=== PATIENT | female | born 1975 | race African-American/Black ===

== ENCOUNTER → 2017-02-15 | Outpatient (CLI) | payer BC ==
--- NOTE | 2017-02-15 15:36 | KCIC ---
EXAM: Pelvic sonogram. HISTORY: Menstrual irregularity and cramping. TECHNIQUE: Transabdominal and transvaginal sonographic imaging of the pelvis was performed. COMPARISON: None. FINDINGS: The uterus measures 8.7 x 4.3 x 4.7 cm. There is a 2.1 cm fibroid within the superior uterine fundus. The endometrial stripe measures 6.1 mm in thickness. There is a small endometrial fluid collection within the lower uterine segment measuring 9 mm in maximum dimension. There are multiple nabothian cysts within the cervix. The right ovary measures 3.1 x 2.6 x 2.2 cm and demonstrates normal blood flow. There is a complex cyst with internal septation within the right ovary measuring 2.4 x 2.0 x 1.8 cm. The left ovary is obscured. There are left adnexal pelvic varices. There is no pelvic free fluid. IMPRESSION: 1. Small nonspecific endometrial fluid collection within the lower uterine segment. The endometrial stripe is within normal limits in thickness. 2. 2.1 cm uterine fibroid. 3. 2.4 cm complex right ovarian cyst with internal septation. 4. Left pelvic varices. The left ovary is obscured. Electronically signed by: Nikole Fowler MD (02/15/2017 3:33 PM) [id number]
== END | disposition home or self-care (01) ==
LOC: KCIC US 14:29
PROVIDERS: ATTEND Family Medicine
DX: N92.6 Irregular menstruation, unspecified (principal); R25.2 Cramp and spasm; I86.2 Pelvic varices
CPT/HCPCS: 76830; 76856

== ENCOUNTER 2021-01-27 11:14 | Emergency (ER) | payer BC ==
[~2021-01-27] VITALS: Ht 157.5 cm; Wt 118.3 kg
[2021-01-27] MEDS ORDERED: ONDANSETRON PF 4 MG/2 ML VIAL. ONE (13:00)
[2021-01-27 13:08] VITALS: BP 127/71
[2021-01-27 13:24] LABS: BASO # 0.1 x10^3/uL (0.0-0.2); BASO % 1 % (0-3); EOS # 0.1 x10^3/uL (0.0-0.7); EOS % 1 % (0-3); HEMATOCRIT 44.8 % (36.0-47.0); HEMOGLOBIN 14.9 g/dL (12.0-15.5); LYMPH # 1.9 x10^3/uL (1.0-4.8); LYMPH % 26 % (24-48); MEAN CORPUSCULAR HEMOGLOBIN 28 pg (25-35); MEAN CORPUSCULAR HGB CONC 33 g/dL (31-37); MEAN CORPUSCULAR VOLUME 85 fL (79-100); MONO # 0.9 x10^3/uL (0.0-1.1); MONO % 12 % (0-9); NEUT # 4.6 x10^3/uL (1.8-7.7); NEUT % 61 % (31-73); PLATELET COUNT 672 x10^3/uL (140-400); RED BLOOD COUNT 5.25 x10^6/uL (3.50-5.40); RED CELL DISTRIBUTION WIDTH 13.9 % (11.5-14.5); WHITE BLOOD COUNT 7.5 x10^3/uL (4.0-11.0)
[2021-01-27] MEDS ORDERED: IV NORMAL SALINE 1000ML BAG 1,000 ML IV ONE (13:30)
[2021-01-27] MEDS ORDERED: ONDANSETRON PF 4 MG/2 ML VIAL. IVP ONE (13:30)
[2021-01-27 13:32] LABS: CALCIUM 9.7 mg/dL (8.5-10.1); CREATININE 0.9 mg/dL (0.6-1.0); GFR 81.9; POTASSIUM 3.1 mmol/L (3.5-5.1)
[2021-01-27 13:39] LABS: ALBUMIN 4.1 g/dL (3.4-5.0); TOTAL BILIRUBIN 0.6 mg/dL (0.2-1.0); TOTAL PROTEIN 8.2 g/dL (6.4-8.2)
[2021-01-27] MEDS ORDERED: POTASSIUM CHLORIDE 20 MEQ TABLET.ER. PO ONE (14:30)
[2021-01-27 14:40] LABS: BILIRUBIN,URINE SMALL (NEG); CLARITY,URINE CLEAR; COLOR,URINE AMBER; NITRITE,URINE NEGATIVE (NEG); PROTEIN,URINE 100 mg/dL (NEG-TRACE)
[2021-01-27 14:46] LABS: BARBITURATES NEG (NEG); BENZODIAZEPINES NEG (NEG); CANNABINOIDS POS (NEG); COCAINE NEG (NEG); METHADONE NEG (NEG); OPIATES NEG (NEG); PHENCYCLIDINE NEG (NEG)
[2021-01-27 14:47] LABS: AMPHETAMINE/METHAMPHETAMINE NEG (NEG)
[2021-01-27 14:48] LABS: HYALINE CASTS, URINE FEW /HPF
[2021-01-27 14:49] LABS: BACTERIA,URINE 0 /HPF (0-FEW); TRICHOMONAS,URINE PRESENT; WBC,URINE 20-40 /HPF (0-4)
[2021-01-27] MEDS ORDERED: DOXYCYCLINE HYCLATE 100 MG TABLET PO ONE (15:30)
[2021-01-27] MEDS ORDERED: cefTRIAXone IV Push 1 GM VIAL. IVP ONE (15:30)
[2021-01-27] MEDS ORDERED: metroNIDAZOLE 500 MG TABLET PO ONE (15:30)
--- NOTE | 2021-01-27 15:35 | PHYS DOC ---
Past Medical History Past Medical History: No Pertinent History (OLIVIA BARNETT BUTTON CLAMPER) Past Surgical History: No Surgical History (OLIVIA BARNETT BUTTON CLAMPER) Smoking Status: Never Smoker Alcohol Use: None (ERICKAOLIVIA BUTTON CLAMPER) General Adult EDM: Chief Complaint: DEHYDRATION HPI: HPI: Patient is a 45 year old female patient presented to the ED today stating she is dehydrated. Patient states she was diagnosed with COVID-19 on January 15, 2021. She states she has had intermittent episodes of nausea and vomiting since then as well as dysuria. She states she was originally seen at an urgent care last week and was put on levaquin for 5 days, she states she already completed the medicine with no improvement (NATEOLIVIA Josue BUTTON CLAMPER) Review of Systems: Review of Systems: Constitutional: Denies fever or chills. [] Eyes: Denies change in visual acuity. [] HENT: Denies nasal congestion or sore throat. [] Respiratory: Denies cough or shortness of breath. [] Cardiovascular: Denies chest pain or edema. [] GI: Reports nausea, vomiting. Denies abdominal pain bloody stools or diarrhea. [] : Reports dysuria. [] Musculoskeletal: Denies back pain or joint pain. [] Integument: Denies rash. [] Neurologic: Denies headache, focal weakness or sensory changes. [] Psychiatric: Denies depression or anxiety. [] (NATEOLIVIA Josue BUTTON CLAMPER) Heart Score: C/O Chest Pain: N/A Risk Factors: Risk Factors: DM, Current or recent (<one month) smoker, HTN, HLP, family history of CAD, obesity. Risk Scores: Score 0 - 3: 2.5% MACE over next 6 weeks - Discharge Home Score 4 - 6: 20.3% MACE over next 6 weeks - Admit for Clinical Observation Score 7 - 10: 72.7% MACE over next 6 weeks - Early Invasive Strategies (OLIVIA BARNETT BUTTON CLAMPER) Current Medications: Current Medications Medications (Trade) Dose Ordered Sig/Larry Start Time Stop Time Status Last Admin Dose Admin Ceftriaxone Sodium (Rocephin) 1 gm 1X ONCE 01/27/21 15:30 01/27/21 15:31 Doxycycline Hyclate (Vibra-Tab) 100 mg 1X ONCE 7/5/21 15:30 01/27/21 15:31 Metronidazole (Flagyl) 2,000 mg 1X ONCE 01/27/21 15:30 01/27/21 15:31 Ondansetron HCl (Zofran) 4 mg STK-MED ONCE 01/27/21 13:00 01/27/21 13:00 DC Potassium Chloride (Klor-Con) 40 meq 1X ONCE 01/27/21 14:30 01/27/21 14:31 DC 01/27/21 14:15 40 MEQ Sodium Chloride 1,000 ml @ 1,000 mls/hr 1X ONCE 01/27/21 13:30 01/27/21 14:29 DC 01/27/21 13:14 1,000 MLS/HR (OLIVIA BARNETT M BUTTON CLAMPER) Allergies: Allergies: Allergies Coded Allergies Type Severity Reaction Last Updated Verified sulfamethoxazole Allergy Intermediate vomit 01/27/21 Yes trimethoprim Allergy Intermediate vomit 01/27/21 Yes (NATEAOLIVIA M BUTTON CLAMPER) Physical Exam: PE: Constitutional: Well developed, well nourished, no acute distress, non-toxic appearance. [] HENT: Normocephalic, atraumatic, bilateral external ears normal, oropharynx moist, no oral exudates, nose normal. [] Eyes: PERRLA, EOMI, conjunctiva normal, no discharge. [] Neck: Normal range of motion, no tenderness, supple, no stridor. [] Cardiovascular:Heart rate regular rhythm, no murmur [] Lungs & Thorax: Bilateral breath sounds clear to auscultation [] Abdomen: Bowel sounds normal, soft, no tenderness, no masses, no pulsatile masses. [] Skin: Warm, dry, no erythema, no rash. [] Back: No tenderness, no CVA tenderness. [] Extremities: No tenderness, no cyanosis, no clubbing, ROM intact, no edema. [] Neurologic: Alert and oriented X 3, normal motor function, normal sensory function, no focal deficits noted. Cranial nerves II through XII intact Psychologic: Affect normal, judgement normal, mood normal. [] (ERICKA,OLIVIA M BUTTON CLAMPER) Current Patient Data: Labs: Laboratory Tests Test 01/27/21 13:10 01/27/21 14:20 White Blood Count 7.5 x10^3/uL (4.0-11.0) Red Blood Count 5.25 x10^6/uL (3.50-5.40) Hemoglobin 14.9 g/dL (12.0-15.5) Hematocrit 44.8 % (36.0-47.0) Mean Corpuscular Volume 85 fL (79-100) Mean Corpuscular Hemoglobin 28 pg (25-35) Mean Corpuscular Hemoglobin Concent 33 g/dL (31-37) Red Cell Distribution Width 13.9 % (11.5-14.5) Platelet Count 672 x10^3/uL (140-400) H Neutrophils (%) (Auto) 61 % (31-73) Lymphocytes (%) (Auto) 26 % (24-48) Monocytes (%) (Auto) 12 % (0-9) H Eosinophils (%) (Auto) 1 % (0-3) Basophils (%) (Auto) 1 % (0-3) Neutrophils # (Auto) 4.6 x10^3/uL (1.8-7.7) Lymphocytes # (Auto) 1.9 x10^3/uL (1.0-4.8) Monocytes # (Auto) 0.9 x10^3/uL (0.0-1.1) Eosinophils # (Auto) 0.1 x10^3/uL (0.0-0.7) Basophils # (Auto) 0.1 x10^3/uL (0.0-0.2) Sodium Level 143 mmol/L (136-145) Potassium Level 3.1 mmol/L (3.5-5.1) L Chloride Level 102 mmol/L (98-107) Carbon Dioxide Level 31 mmol/L (21-32) Anion Gap 10 (6-14) Blood Urea Nitrogen 9 mg/dL (7-20) Creatinine 0.9 mg/dL (0.6-1.0) Estimated GFR (Cockcroft-Gault) 81.9 BUN/Creatinine Ratio 10 (6-20) Glucose Level 130 mg/dL (70-99) H Calcium Level 9.7 mg/dL (8.5-10.1) Total Bilirubin 0.6 mg/dL (0.2-1.0) Aspartate Amino Transferase (AST) 146 U/L (15-37) H Alanine Aminotransferase (ALT) 298 U/L (14-59) H Alkaline Phosphatase 108 U/L (46-116) Total Protein 8.2 g/dL (6.4-8.2) Albumin 4.1 g/dL (3.4-5.0) Albumin/Globulin Ratio 1.0 (1.0-1.7) Lipase 52 U/L (73-393) L Ethyl Alcohol Level < 10 mg/dL (0-10) Urine Collection Type Unknown Urine Color Anabelle Urine Clarity Clear Urine pH 6.0 (<5.0-8.0) Urine Specific [place] >=1.030 (1.000-1.030) Urine Protein 100 mg/dL (NEG-TRACE) Urine Glucose (UA) Negative mg/dL (NEG) Urine Ketones (Stick) Trace mg/dL (NEG) Urine Blood Negative (NEG) Urine Nitrite Negative (NEG) Urine Bilirubin Small (NEG) Urine Urobilinogen Dipstick 1.0 mg/dL (0.2 mg/dL) Urine Leukocyte Esterase Small (NEG) Urine RBC 1-2 /HPF (0-2) Urine WBC 20-40 /HPF (0-4) Urine Squamous Epithelial Cells Mod /LPF Urine Bacteria 0 /HPF (0-FEW) Urine Hyaline Casts Few /HPF Urine Mucus Marked /LPF Urine Trichomonas Present Urine Opiates Screen Neg (NEG) Urine Methadone Screen Neg (NEG) Urine Barbiturates Neg (NEG) Urine Phencyclidine Screen Neg (NEG) Urine Amphetamine/Methamphetamine Neg (NEG) Urine Benzodiazepines Screen Neg (NEG) Urine Cocaine Screen Neg (NEG) Urine Cannabinoids Screen Pos (NEG) Urine Ethyl Alcohol Neg (NEG) Laboratory Tests 01/27/21 13:10 Laboratory Tests 01/27/21 13:10 Vital Signs: Vital Signs Date Time Temp Pulse Resp B/P (MAP) Pulse Ox O2 Delivery O2 Flow Rate FiO2 01/27/21 13:08 98.7 85 20 127/71 (89) 98 Room Air 98.7 (OLIVIA BARNETT BUTTON CLAMPER) EKG: EKG: [] (OLIVIA BARNETT BUTTON CLAMPER) Radiology/Procedures: Radiology/Procedures: [] (OLIVIA BARNETT BUTTON CLAMPER) Course & Med Decision Making: Course & Med Decision Making Pertinent Labs and Imaging studies reviewed. (See chart for details) This is a 45-year-old female patient presented to the ED today complaining of dehydration. Patient was diagnosed with COVID-19 on January 15, 2021 as well as UTI. She was treated with Levaquin. She states symptoms are still ongoing including dysuria. Vitals are stable on arrival to the ED. CBC with a normal WBC, CMP noted for potassium of 3.1, oral potassium given. AST 146 and ALT of 298. Patient has no abdominal pain, this could be from Covid UA positive for trichomonas and UTI. Patient was given 1 L of IV fluids. Given Zofran. Patient was given Rocephin, Flagyl and doxycycline in the ED. Discharged with doxycycline and cephalexin. STD education provided Patient seem interested to be admitted in the hospital. Informed her there is no indication to be admitted in the hospital considering her O2 sats above 95% on room air and the rest of her lab work does not have anything acute that needs hospital admission. (OLIVIA BARNETT BUTTON CLAMPER) Course & Med Decision Making I oversaw on the above date of service of this patient. This patient was evaluated, examined, treated, and dispositioned from the emergency department by the mid-level practitioner. Although I was working at the time and available for consultation, no assistance was requested and I did not see or immediately direct the care of this patient. I reviewed note and agree to findings, plan of care, and disposition as stated. Electronically signed, Jailene Garzon DO (JAILENE GARZON DO) Jorge A Disclaimer: Jorge A Disclaimer: This electronic medical record was generated, in whole or in part, using a voice recognition dictation system. (OLIVIA BARNETT BUTTON CLAMPER) Departure Departure Impression: Primary Impression: UTI (urinary tract infection) Qualified Codes: N39.0 - Urinary tract infection, site not specified Additional Impressions: Trichomoniasis Dehydration COVID-19 long hauler Hypokalemia Nausea and vomiting Qualified Codes: R11.13 - Vomiting of fecal matter Disposition: HOME / SELF CARE / HOMELESS Condition: STABLE Referrals: CELESTE HUERTA MD (PCP) follow up with your doctor next week Patient Instructions: Dehydration, Adult, [id number], Hypokalemia-Brief, Trichomoniasis-Brief, Urinary Tract Infection Additional Instructions: You were evaluated in the emergency room, you have UTI as well as trichomonas and dehydration. Continue pushing fluids. Take the prescribed antibiotics until completed. Do not have any sexual intercourse for 2 weeks. Please call all your sex partners and let them know you tested positive for trichomonas and ask them to seek treatment Scripts Prochlorperazine Maleate (Compazine) 10 Mg Tablet 1 TAB PO Q6HRS for 7 Days, #28 TAB 0 Refills Prov: OLIVIA BARNETT APRN 01/27/21 Cephalexin (CEPHALEXIN) 500 Mg Tablet 1 TAB PO BID, #14 TAB Prov: OLIVIA BARNETT APRN 01/27/21 Ondansetron (ONDANSETRON ODT) 4 Mg Tab.rapdis 1 TAB PO PRN Q6-8HRS, #16 TAB Prov: OLIVIA BARNETT APRN 01/27/21 Doxycycline Hyclate (DOXYCYCLINE HYCLATE) 100 Mg Tablet 1 TAB PO BID, #14 TAB Prov: OLIVIA BARNETT APRN 01/27/21 OLIVIA BARNETT APRN Jan 27, 2021 15:35 JAILENE GARZON DO Jan 28, 2021 05:54
[2021-01-27] MEDS ORDERED: DOXY100T PO (15:42)
[2021-01-27] MEDS ORDERED: CEPH500T PO (15:42)
[2021-01-27] MEDS ORDERED: ONDA4TAB12 PO (15:42)
[2021-01-27] MEDS ORDERED: PROC10TA57 PO (15:44)
== END 2021-01-27 16:01 | disposition home or self-care (01) ==
LOC: ER 11:14
DX: U07.1 COVID-19 (principal); N39.0 Urinary tract infection, site not specified; A59.9 Trichomoniasis, unspecified; E86.0 Dehydration; E87.6 Hypokalemia; R11.2 Nausea with vomiting, unspecified; Z88.1 Allergy status to other antibiotic agents; Z88.2 Allergy status to sulfonamides
CPT/HCPCS: 36415; 80053; 80307; 81001; 83690; 85025; 87086; 96361; 96374; 96375; 99284; G0480; J0696; J2405; J7030